=== PATIENT | female | born 1940 | race Caucasian/White ===

== ENCOUNTER → 2016-09-30 | Outpatient (CLI) | payer MEDICARE ==
[~2016-09-30] MED LIST: ASPIRIN81 M1 PO; BENADRYL25 MG PO; CALCIUM LACTAT100 MG PO; CALCIUM1 CAP PO; CENTRUM1 TAB PO; FISH OIL 10001000 MG PO; FISH OIL1 IU PO; INDERAL40 MG PO; LIPITOR40 MG PO; METFORMIN500 MG PO; MOTRIN600 MG PO; NITROSTAT0.4 MG SL; NORVASC10 MG PO; PLAVIX75 MG PO; PREDNICOT20 MG PO; TESSALON PERLE200 MG PO; VIBRAMYCIN100 MG PO; VITAMIN B COMPL1 T12 PO; VITAMIN D1000 IU PO; ZOCOR80 MG PO
== END | disposition home or self-care (01) ==
LOC: US 10:00
DX: M79.89 Other specified soft tissue disorders (principal)

== ENCOUNTER 2017-07-28 21:06 | Inpatient (IN) | payer MEDICARE ==
[~2017-07-28] VITALS: Ht 154.9 cm; Wt 82.8 kg
[2017-07-28 21:14] VITALS: BP 160/51
[2017-07-28 21:34] LABS: BASO % 0.5 % (0.0-1.0); EOS # 0.3 10*3/uL (0.0-0.4); EOS % 4.8 % (1.0-4.0); HEMATOCRIT 33.3 % (37.0-47.0); LYMPH # 1.3 10*3/uL (1.3-4.4); LYMPH % 22.4 % (27.0-41.0); MEAN CELL VOLUME 85.6 fl (81.0-99.0); MEAN CORPUSCULAR HGB 28.3 pg (27.0-31.0); MEAN PLATELET VOLUME 11.1 fl (9.6-12.3); MONO # 0.9 10*3/uL (0.1-1.0); MONO % 14.8 % (3.0-9.0); NEUT # 3.4 10*3/uL (2.3-7.9); NEUT % 57.3 % (47.0-73.0); PLATELET COUNT AUTOMATED 237 10*3/uL (130-400); RED BLOOD COUNT 3.89 10*6/uL (4.10-5.10); RED CELL DISTRI WIDTH 14.1 % (0-14.5); WHITE BLOOD COUNT 5.9 10*3/uL (4.8-10.8)
[2017-07-28 21:44] LABS: ACT PARTIAL THROMBO TIME 24.9 SECONDS (20.8-31.5); ALBUMIN 3.5 gm/dl (3.1-4.5); ALKALINE PHOSPHATASE 137 U/L (45-117); BUN 17 mg/dl (7-24); CHLORIDE 98 mmol/L (98-107); CREATININE 0.94 mg/dL (0.55-1.02); POTASSIUM 3.8 mmol/L (3.5-5.1); SGOT/AST 19 IU/L (3-35); SGPT/ALT 20 U/L (12-78); SODIUM 132 mmol/L (136-145); TOTAL PROTEIN 7.9 gm/dL (6.4-8.2)
[2017-07-28 21:45] LABS: TROPONIN I < 0.015 ng/ml (<0.045)
[2017-07-28 21:46] VITALS: BP 132/87
[2017-07-28 22:19] VITALS: BP 146/51
[2017-07-29 00:17] VITALS: BP 119/62
[2017-07-29 00:50] VITALS: BP 142/68
[2017-07-29 06:01] LABS: ALBUMIN 3.3 gm/dl (3.1-4.5); ALKALINE PHOSPHATASE 124 U/L (45-117); BUN 13 mg/dl (7-24); CHLORIDE 102 mmol/L (98-107); CHOLESTEROL 149 mg/dL (<200); CREATININE 0.74 mg/dL (0.55-1.02); FREE T4 1.23 ng/dl (0.76-1.46); HDL CHOLESTEROL 50 mg/dl (40-60); LDL CHOLESTEROL 80 mg/dL (9-159); PHOSPHOROUS 3.5 mg/dL (2.5-4.9); POTASSIUM 3.6 mmol/L (3.5-5.1); SGOT/AST 17 IU/L (3-35); SGPT/ALT 18 U/L (12-78); SODIUM 136 mmol/L (136-145); TOTAL PROTEIN 7.1 gm/dL (6.4-8.2); TRIGLYCERIDES 95 mg/dl (<150); VLDL CHOLESTEROL 19 mg/dL (6-40)
[2017-07-29 06:19] LABS: BASO % 0.6 % (0.0-1.0); EOS # 0.2 10*3/uL (0.0-0.4); EOS % 4.9 % (1.0-4.0); HEMATOCRIT 31.1 % (37.0-47.0); HEMOGLOBIN 10.4 g/dl (12.0-16.0); LYMPH # 0.9 10*3/uL (1.3-4.4); LYMPH % 19.2 % (27.0-41.0); MEAN CELL VOLUME 85.9 fl (81.0-99.0); MEAN CORPUSCULAR HGB 28.7 pg (27.0-31.0); MEAN CORPUSCULAR HGB CONC 33.4 g/dl (33.0-37.0); MEAN PLATELET VOLUME 11.4 fl (9.6-12.3); MONO # 0.6 10*3/uL (0.1-1.0); MONO % 13.5 % (3.0-9.0); NEUT # 2.9 10*3/uL (2.3-7.9); NEUT % 61.4 % (47.0-73.0); PLATELET COUNT AUTOMATED 209 10*3/uL (130-400); RED BLOOD COUNT 3.62 10*6/uL (4.10-5.10); RED CELL DISTRI WIDTH 14.1 % (0-14.5); WHITE BLOOD COUNT 4.7 10*3/uL (4.8-10.8)
[2017-07-29 07:59] LABS: VITAMIN D, 25-HYDROXY 18.4 ng/mL (30-100)
[2017-07-29 08:00] VITALS: BP 135/54
[2017-07-29] MEDS ORDERED: AMARYL2 MG PO (08:59)
[2017-07-29] MEDS ORDERED: VALSARTAN160 MG PO (09:00)
[2017-07-29] MEDS ORDERED: HYDR25T PO (09:01)
[2017-07-29 12:00] VITALS: BP 135/54
[2017-07-29 16:00] VITALS: BP 124/70
== END 2017-07-29 19:11 | disposition home or self-care (01) | DRG 552 ==
LOC: ED 21:06 → 5E 07-29 00:24 → EDHOLD 07-29 00:24 → 5E 07-29 00:30
PROVIDERS: Emergency Medicine Emergency Medical Services; Internal Medicine
DX: M50.922 Unspecified cervical disc disorder at C5-C6 level (principal); D72.1 Eosinophilia; E11.65 Type 2 diabetes mellitus with hyperglycemia; E87.1 Hypo-osmolality and hyponatremia; E44.1 Mild protein-calorie malnutrition; I50.32 Chronic diastolic (congestive) heart failure; K21.9 Gastro-esophageal reflux disease without esophagitis; F41.9 Anxiety disorder, unspecified; M94.0 Chondrocostal junction syndrome [Tietze]; I25.119 Atherosclerotic heart disease of native coronary artery with unspecified angina pectoris; D72.810 Lymphocytopenia; E55.9 Vitamin D deficiency, unspecified; D64.9 Anemia, unspecified; M99.81 Other biomechanical lesions of cervical region; M79.602 Pain in left arm; E78.5 Hyperlipidemia, unspecified; M54.12 Radiculopathy, cervical region; Z79.82 Long term (current) use of aspirin; I25.2 Old myocardial infarction; Z79.899 Other long term (current) drug therapy; Z85.3 Personal history of malignant neoplasm of breast; Z95.5 Presence of coronary angioplasty implant and graft; Z90.49 Acquired absence of other specified parts of digestive tract; Z90.13 Acquired absence of bilateral breasts and nipples; Z90.710 Acquired absence of both cervix and uterus; Z82.49 Family history of ischemic heart disease and other diseases of the circulatory system

== ENCOUNTER 2019-11-21 21:26 | Inpatient (IN) | payer MEDICARE ==
[~2019-11-21] VITALS: Ht 152.4 cm; Wt 71.2 kg
[~2019-11-21 21:26] MED LIST changes: +AMARYL2 MG PO; +HYDR25T PO; +VALSARTAN160 MG PO
[2019-11-21 21:27] VITALS: BP 128/102; BP 153/52
[2019-11-21 22:00] VITALS: BP 157/74
[2019-11-21 22:07] LABS: BASO % 0.7 % (0.0-1.0); EOS # 0.2 10*3/uL (0.0-0.4); EOS % 3.9 % (1.0-4.0); LYMPH # 1.2 10*3/uL (1.3-4.4); LYMPH % 20.4 % (27.0-41.0); MEAN CELL VOLUME 88.4 fl (81.0-99.0); MEAN CORPUSCULAR HGB 27.8 pg (27.0-31.0); MEAN CORPUSCULAR HGB CONC 31.4 g/dl (33.0-37.0); MEAN PLATELET VOLUME 11.1 fl (9.6-12.3); MONO # 0.7 10*3/uL (0.1-1.0); MONO % 11.5 % (3.0-9.0); NEUT # 3.8 10*3/uL (2.3-7.9); NEUT % 62.5 % (47.0-73.0); PLATELET COUNT AUTOMATED 237 10*3/uL (130-400); RED BLOOD COUNT 3.96 10*6/uL (4.10-5.10); RED CELL DISTRI WIDTH 13.6 % (0-14.5); WHITE BLOOD COUNT 6.1 10*3/uL (4.8-10.8)
[2019-11-21 22:15] LABS: ACT PARTIAL THROMBO TIME 25.9 SECONDS (20.0-32.1)
[2019-11-21 22:24] LABS: ALBUMIN 3.6 gm/dl (3.1-4.5); ALKALINE PHOSPHATASE 97 U/L (45-117); BUN 24 mg/dl (7-24); CHLORIDE 101 mmol/L (98-107); CREATININE 1.26 mg/dL (0.55-1.02); POTASSIUM 3.7 mmol/L (3.5-5.1); SGOT/AST 13 IU/L (3-35); SGPT/ALT 14 U/L (12-78); SODIUM 133 mmol/L (136-145); TOTAL PROTEIN 8.1 gm/dL (6.4-8.2)
[2019-11-21 22:26] LABS: TROPONIN I < 0.015 ng/ml (<0.045)
[2019-11-21 22:32] VITALS: BP 164/67
[2019-11-21] MEDS ORDERED: AVAPRO150 M1 PO (23:21)
[2019-11-21] MEDS ORDERED: FORTAMET500 MG PO (23:22)
[2019-11-21 23:35] VITALS: BP 152/63
[2019-11-22] VITALS: BP 105/72
[2019-11-22 07:03] LABS: BASO % 0.2 % (0.0-1.0); EOS % 0.3 % (1.0-4.0); HEMATOCRIT 39.5 % (37.0-47.0); LYMPH # 0.5 10*3/uL (1.3-4.4); LYMPH % 3.9 % (27.0-41.0); MEAN CELL VOLUME 89.6 fl (81.0-99.0); MEAN CORPUSCULAR HGB 27.9 pg (27.0-31.0); MEAN CORPUSCULAR HGB CONC 31.1 g/dl (33.0-37.0); MEAN PLATELET VOLUME 11.3 fl (9.6-12.3); MONO # 0.7 10*3/uL (0.1-1.0); MONO % 5.9 % (3.0-9.0); NEUT # 10.9 10*3/uL (2.3-7.9); NEUT % 89.5 % (47.0-73.0); PLATELET COUNT AUTOMATED 252 10*3/uL (130-400); RED BLOOD COUNT 4.41 10*6/uL (4.10-5.10); RED CELL DISTRI WIDTH 13.3 % (0-14.5); WHITE BLOOD COUNT 12.1 10*3/uL (4.8-10.8)
[2019-11-22 07:33] LABS: ALBUMIN 3.6 gm/dl (3.1-4.5); BUN 24 mg/dl (7-24); CHLORIDE 99 mmol/L (98-107); CHOLESTEROL 153 mg/dL (<200); CREATININE 0.86 mg/dL (0.55-1.02); POTASSIUM 4.3 mmol/L (3.5-5.1); SGOT/AST 23 IU/L (3-35); SGPT/ALT 15 U/L (12-78); SODIUM 129 mmol/L (136-145); TOTAL PROTEIN 8.2 gm/dL (6.4-8.2); TRIGLYCERIDES 82 mg/dl (<150); VLDL CHOLESTEROL 16 mg/dL (6-40)
[2019-11-22 07:40] LABS: ALKALINE PHOSPHATASE 96 U/L (45-117); FREE T4 1.33 ng/dl (0.76-1.46); HDL CHOLESTEROL 54 mg/dl (40-60); LDL CHOLESTEROL 83 mg/dL (9-159)
[2019-11-22 08:37] LABS: VITAMIN D, 25-HYDROXY 24.2 ng/mL (30-100)
== END 2019-11-22 10:49 | disposition left against medical advice (07) | DRG 311 ==
LOC: ED 21:26 → 4E 23:38 → EDHOLD 23:38 → 4E 23:41
PROVIDERS: Emergency Medicine; Internal Medicine; ADMIT Internal Medicine
DX: I24.8 Other forms of acute ischemic heart disease (principal); N17.0 Acute kidney failure with tubular necrosis; E87.1 Hypo-osmolality and hyponatremia; I50.32 Chronic diastolic (congestive) heart failure; I25.10 Atherosclerotic heart disease of native coronary artery without angina pectoris; E11.65 Type 2 diabetes mellitus with hyperglycemia; E66.9 Obesity, unspecified; I11.0 Hypertensive heart disease with heart failure; E78.5 Hyperlipidemia, unspecified; D64.9 Anemia, unspecified; E55.9 Vitamin D deficiency, unspecified; Z53.29 Procedure and treatment not carried out because of patient's decision for other reasons; I34.0 Nonrheumatic mitral (valve) insufficiency; I25.2 Old myocardial infarction; Z90.13 Acquired absence of bilateral breasts and nipples; Z90.49 Acquired absence of other specified parts of digestive tract; Z90.710 Acquired absence of both cervix and uterus; Z95.5 Presence of coronary angioplasty implant and graft; Z82.49 Family history of ischemic heart disease and other diseases of the circulatory system; Z79.899 Other long term (current) drug therapy; Z79.84 Long term (current) use of oral hypoglycemic drugs; Z85.3 Personal history of malignant neoplasm of breast; Z79.82 Long term (current) use of aspirin

== ENCOUNTER 2019-11-23 14:00 | Observation (INO) | payer MEDICARE ==
[~2019-11-23] VITALS: Ht 152.4 cm; Wt 70.8 kg
[~2019-11-23 14:00] MED LIST changes: +AVAPRO150 M1 PO; +FORTAMET500 MG PO
[2019-11-23 14:15] VITALS: BP 136/60
[2019-11-23 14:19] LABS: BASO % 0.1 % (0.0-1.0); MEAN CORPUSCULAR HGB 27.8 pg (27.0-31.0)
[2019-11-23 14:22] LABS: HEMATOCRIT 39.3 % (37.0-47.0); LYMPH % 11.1 % (27.0-41.0); MEAN CORPUSCULAR HGB CONC 33.1 g/dl (33.0-37.0); MEAN PLATELET VOLUME 11.2 fl (9.6-12.3); MONO # 0.8 10*3/uL (0.1-1.0); MONO % 9.1 % (3.0-9.0); NEUT # 6.9 10*3/uL (2.3-7.9); NEUT % 79.6 % (47.0-73.0); RED BLOOD COUNT 4.68 10*6/uL (4.10-5.10); RED CELL DISTRI WIDTH 13.7 % (0-14.5); WHITE BLOOD COUNT 8.6 10*3/uL (4.8-10.8)
[2019-11-23 14:25] LABS: PLATELET COUNT AUTOMATED 334 10*3/uL (130-400)
[2019-11-23 14:30] LABS: ACT PARTIAL THROMBO TIME 26.5 SECONDS (20.0-32.1)
[2019-11-23 14:34] LABS: ALBUMIN 3.6 gm/dl (3.1-4.5); CREATININE 1.9 mg/dL (0.55-1.02); POTASSIUM 3.9 mmol/L (3.5-5.1); TOTAL PROTEIN 8.7 gm/dL (6.4-8.2)
[2019-11-23 14:45] LABS: TROPONIN I 0.103 ng/ml (<0.045)
[2019-11-23 15:36] VITALS: BP 130/57
[2019-11-23 16:42] VITALS: BP 148/63
[2019-11-23 17:10] VITALS: BP 154/63
--- NOTE | 2019-11-23 17:10 | NUR ---
A 78, admitted to , under the services of JAQUELINE King DO with a diagnosis of BLAKE, ELEVATED TROPONIN, CHEST PAIN. Chief complaint is CHEST PAIN. Patient arrived via ambulatory from ER. Monitor applied. Initial assessment completed. Vital signs taken and recorded. JAQUELINE KING DO notified of admission to the unit. Orders received. See assessment for past medical history, medications and allergies. Patient and/or family oriented to unit. [facility] visitation policy reviewed. Clothing/patient valuable form completed. AP MCGEE
--- NOTE | 2019-11-23 17:58 | NUR ---
DR. ANTONY NOTIFIED OF NEW CONSULT. NEW ORDERS RCVD.
--- NOTE | 2019-11-23 18:15 | NUR ---
PT HAD SMALL EMESIS OF BROWN LIQUID AND C/O MIDSTERNAL CHEST PRESSURE 6/10. MEDICATED W/MORPHINE AND ZOFRAN IVP. WILL MONITOR.
--- NOTE | 2019-11-23 19:00 | NUR ---
PT STATES CHEST DISCOMFORT HAS SUBSIDED WELL NAUSEA. PT ATTEMPTING TO EAT CRACKERS AND APPLESAUCE.
--- NOTE | 2019-11-23 20:27 | NUR ---
DR. CERRATO NOTIFIED OF PT'S CRITICAL TROPONIN AND MED REC UTD.
--- NOTE | 2019-11-23 23:25 | NUR ---
DR. CERRATO NOTIFIED OF PT'S ELEVATED TROPONIN.
[2019-11-24] VITALS: BP 148/66
--- NOTE | 2019-11-24 00:51 | NUR ---
PT RESTING QUIETLY IN BED. NO S/S OF DISTRESS NOTED.
--- NOTE | 2019-11-24 06:14 | NUR ---
SPOKE W/CARDIAC REHAB. PT HAD REFUSED STRESS TEST LAST WK. PT AND ARE AGREEABLE TO STRESS TEST AT THIS TIME.
[2019-11-24 07:17] LABS: BASO % 0.2 % (0.0-1.0); EOS % 0.3 % (1.0-4.0); HEMATOCRIT 33.9 % (37.0-47.0); LYMPH # 0.9 10*3/uL (1.3-4.4); LYMPH % 14.7 % (27.0-41.0); MEAN CELL VOLUME 86.5 fl (81.0-99.0); MEAN CORPUSCULAR HGB 28.1 pg (27.0-31.0); MEAN CORPUSCULAR HGB CONC 32.4 g/dl (33.0-37.0); MEAN PLATELET VOLUME 11.4 fl (9.6-12.3); MONO % 15.9 % (3.0-9.0); NEUT # 4.3 10*3/uL (2.3-7.9); NEUT % 68.7 % (47.0-73.0); PLATELET COUNT AUTOMATED 257 10*3/uL (130-400); RED BLOOD COUNT 3.92 10*6/uL (4.10-5.10); WHITE BLOOD COUNT 6.2 10*3/uL (4.8-10.8)
[2019-11-24 07:44] LABS: ALBUMIN 3.1 gm/dl (3.1-4.5); ALKALINE PHOSPHATASE 69 U/L (45-117); BUN 52 mg/dl (7-24); CHLORIDE 104 mmol/L (98-107); CREATININE 1.07 mg/dL (0.55-1.02); POTASSIUM 3.5 mmol/L (3.5-5.1); SGOT/AST 9 IU/L (3-35); SGPT/ALT 10 U/L (12-78); SODIUM 134 mmol/L (136-145)
[2019-11-24 08:00] VITALS: BP 122/50; BP 126/54
--- NOTE | 2019-11-24 09:00 | NUR ---
Stogy Maker in to talk to patient. Patient states lives at home with . There are no steps in the home. Physician: out of town Pharmacy: mail Home health services: none Patient's level of ADLs: INDEPENDENT Patient has working utilities: all working DME: none Follow-up physician's appointment after d/c: will be made by hospitalist nurse director upon discahrge Does patient want to access PORTAL?: no Discharge plan discussed with patient, she states she lives at home with , she is independent in adls and ambulation, drives, she states she will return home when discharged and denies any home needs. MARIA ELENA FERNANDES
[2019-11-24] MEDS ORDERED: METOPROLOL SUCC50 M1 PO (10:13)
--- NOTE | 2019-11-24 10:35 | NUR ---
CALLED AND NOTIFIED PT'S ABOUT TRANSFERRING TO [facility] CATH PROCEDURE.
--- NOTE | 2019-11-24 11:19 | NUR ---
CALLED AND NOTIFIED AND [facility] TRANSFER MICE RAISER.
--- NOTE | 2019-11-24 11:24 | NUR ---
CALLED AND SPOKE TO BOOM AT [facility]. GAVE HIM NURSE TO NURSE. HE ASKED FOR US TO FAX HIM A DEMOGRAPHIC PAPER ON PT.
--- NOTE | 2019-11-24 11:26 | NUR ---
Discharge instructions PLACED IN PACKET FOR TRANSFERRED [facility] CATH PROCEDURE. . Patient receptive and verbalizes understanding. Follow-up care arranged. Written instructions PLACED IN PAPERWORK FOR TRANSFER. PT HAD NO OTHER QUESTIONS AND PT'S WAS NOTIFIED OF TRANSFER AND GIVEN INSTRUCTIONS. IV REMAINED IN LEFT HAND AND PT WAS TAKEN OFF ELCH MONITOR AND PLACED ON LIFE TEAMS MONITOR. . HARI PURI
== END 2019-11-24 11:26 | disposition short-term general hospital (02) ==
LOC: ED 14:00 → EDHOLD 15:42 → 5E 16:41
PROVIDERS: Emergency Medicine; Registered Nurse; ADMIT Internal Medicine
DX: I21.4 Non-ST elevation (NSTEMI) myocardial infarction (principal); N17.0 Acute kidney failure with tubular necrosis; E86.0 Dehydration; E87.8 Other disorders of electrolyte and fluid balance, not elsewhere classified; R79.89 Other specified abnormal findings of blood chemistry; E87.1 Hypo-osmolality and hyponatremia; I25.10 Atherosclerotic heart disease of native coronary artery without angina pectoris; I11.0 Hypertensive heart disease with heart failure; I50.32 Chronic diastolic (congestive) heart failure; E44.1 Mild protein-calorie malnutrition; E11.65 Type 2 diabetes mellitus with hyperglycemia; E78.5 Hyperlipidemia, unspecified; E55.9 Vitamin D deficiency, unspecified

== ENCOUNTER 2019-11-30 10:11 | Inpatient (IN) | payer MEDICARE ==
[~2019-11-30] VITALS: Ht 152.4 cm; Wt 71.2 kg
[~2019-11-30 10:11] MED LIST changes: +METOPROLOL SUCC50 M1 PO
[2019-11-30 10:20] VITALS: BP 137/55
[2019-11-30 10:56] LABS: HEMATOCRIT 35.3 % (37.0-47.0); MEAN CELL VOLUME 84.4 fl (81.0-99.0); MEAN CORPUSCULAR HGB 27.8 pg (27.0-31.0); MEAN CORPUSCULAR HGB CONC 32.9 g/dl (33.0-37.0); MEAN PLATELET VOLUME 11.2 fl (9.6-12.3); PLATELET COUNT AUTOMATED 335 10*3/uL (130-400); RED BLOOD COUNT 4.18 10*6/uL (4.10-5.10); RED CELL DISTRI WIDTH 13.6 % (0-14.5); WHITE BLOOD COUNT 10.2 10*3/uL (4.8-10.8)
[2019-11-30 11:07] LABS: ACT PARTIAL THROMBO TIME 25.7 SECONDS (20.0-32.1)
[2019-11-30 11:13] LABS: ALBUMIN 3.3 gm/dl (3.1-4.5); ALKALINE PHOSPHATASE 76 U/L (45-117); BUN 13 mg/dl (7-24); CHLORIDE 98 mmol/L (98-107); CREATININE 0.84 mg/dL (0.55-1.02); POTASSIUM 2.6 mmol/L (3.5-5.1); SGOT/AST 19 IU/L (3-35); SGPT/ALT 15 U/L (12-78); SODIUM 130 mmol/L (136-145); TOTAL PROTEIN 7.5 gm/dL (6.4-8.2)
[2019-11-30 11:14] LABS: TROPONIN I 0.025 ng/ml (<0.045)
--- NOTE | 2019-11-30 11:31 | NUR ---
SPOKE WITH A DUAGHTER OF THE PT INI THE ER LOBBY. THEY REPORTS PT WASD TRANSFERED TO [facility] LAST WEEK AND HAD A CATH WITH 1 STENT PLACED. YESTERDAY PT HAD N/V/D. SHE TOOK IMMODIUM AND BRAT DIET AND IT RESOLVED. PT'S REPORTS SHE WAS BETTER THIS AM BUT C/O ABD/CHEST/BACK PAIN. PT IS RESTING IN ROOM, NO ACUTE DISTRESS NOTED AT THIS TIME. DR BENSON INFORMED.
[2019-11-30 11:35] LABS: BASOPHILS 1 % (0-1); TOTAL CELLS COUNTED 100 #CELLS
[2019-11-30 11:36] LABS: BURR CELLS FEW; PLATELET SUFFICIENCY NORMAL (NORMAL)
--- NOTE | 2019-11-30 11:59 | NUR ---
PT C/O PAIN TO EPIGASTRIC AREA, NOTIFIED DR BENSON , MEDS TO BE ORDERED.
[2019-11-30 12:00] VITALS: BP 118/88
--- NOTE | 2019-11-30 12:51 | NUR ---
PT TO BE ADMITTED, PT'S AND DAUGHTER UPDATED WITH THE PROCESS. FAMILY WAS UPSET THEY COULD NOT GO TO THE BACK AND SEE PT. DUE TO COVID NO VISITERS AT THIS TIME. PT IS ASTABLE AND AOX3 AT THIS TIME. PT IS AWARE SHE IS BEING ADMITTED AND IS AGREEABLE. NO ACUTE DISTRESS NOTED, DEMEROL WAS EFFECTIVE FOR HER PAIN. RESTNG QUIETLY AT THIS TIME. HE 84 BP STABLE, POX 99% RA.
[2019-11-30 12:54] VITALS: BP 115/78
--- NOTE | 2019-11-30 14:05 | NUR ---
A 78, admitted to , under the services of FILIPE West DO with a diagnosis of CHEST PAIN. Chief complaint is EPIGASTRIC AREA PAIN. Patient arrived via bed from ER. Monitor applied. Initial assessment completed. Vital signs taken and recorded. FILIPE WEST DO notified of admission to the unit. Orders received. See assessment for past medical history, medications and allergies. Patient and/or family oriented to unit. [facility]. Clothing/patient valuable form completed. REJI AGUILLON
[2019-11-30] MEDS ORDERED: CLONAZEPAM0.5 M1 PO (14:16)
[2019-11-30] MEDS ORDERED: QUETIAPINE FUM100 M2 PO (14:17)
[2019-11-30] MEDS ORDERED: GABAPENTIN400 MG PO ×2 (14:17→14:18)
[2019-11-30] MEDS ORDERED: DOXEPIN HCL150 MG PO (14:17)
[2019-11-30] MEDS ORDERED: BRILINTA90 M1 PO (14:50)
[2019-11-30] MEDS ORDERED: TOPROL XL25 MG PO (14:51)
[2019-11-30] MEDS ORDERED: METFORMIN HCL500 M2 PO (14:51)
[2019-11-30 16:00] VITALS: BP 132/60
--- NOTE | 2019-11-30 17:32 | NUR ---
PATIENT C/O NAUSEA AND UPSET STOMACH. MEDICATD WITH IV ZOFRAN AT THIS TIME PER ORDER. WILL MONITOR FOR EFFECTIVENESS.
[2019-11-30 20:00] VITALS: BP 105/74
--- NOTE | 2019-11-30 20:01 | NUR ---
24 HR chart check completed.
--- NOTE | 2019-11-30 20:37 | NUR ---
RESTING IN BED. RESPIRATIONS EASY. LUNGS DIMINISHED, CLEAR. PULSE OX 96% RA. ABD SOFT WITH NORMO BOWEL SOUNDS. MEDCIATED WITH MORPHINE IV PER PRN ORDER FOR C/O EPIGASTRIC PAIN RATING A 10. CALL LIGHT WITHIN REACH. WILL MONITOR FOR EFFECTIVENESS
--- NOTE | 2019-11-30 21:14 | NUR ---
MEDICATED WITH RESTORIL PER PRN ORDER TO ASSIST WITH SLEEP. WILL MONITOR FOR EFFECTIVENESS
--- NOTE | 2019-11-30 21:30 | NUR ---
EARLIER MEDS APPEARR EFFECTIVE. RESTING IN BED WITH EYES CLOSED AND NO DISTRESS NOTED. CALL LIGHT WITHIN REACH.
--- NOTE | 2019-11-30 22:00 | NUR ---
MEDS EFFECTIVE. SLEEPING. CALL LIGHT WITHIN REACH.
[2019-12-01] VITALS: BP 110/51
--- NOTE | 2019-12-01 | NUR ---
SLEEPING. NO DISTRESS NOTED. RESPIRATIONS EASY. VSS. CALL LIGHT WITHIN REACH.
--- NOTE | 2019-12-01 05:45 | NUR ---
UPON AWAKENING FOR AM MEDS, C/O EPIGASTRIC PAIN RATING A 5 - MEDICATED WITH MORPHINE IV PER PRN ORDER. CALL LIGHT WITHIN REACH. WILL MONITOR
--- NOTE | 2019-12-01 06:30 | NUR ---
MEDS APPEAR EFFECTIVE. RESTING WITH EYES CLOSED. RESPIRATIONS EASY. CALL LIGHT WITHIN REACH.
[2019-12-01 06:46] LABS: HEMATOCRIT 36.5 % (37.0-47.0); MEAN CELL VOLUME 84.1 fl (81.0-99.0); MEAN CORPUSCULAR HGB 27.9 pg (27.0-31.0); MEAN CORPUSCULAR HGB CONC 33.2 g/dl (33.0-37.0); MEAN PLATELET VOLUME 11.5 fl (9.6-12.3); PLATELET COUNT AUTOMATED 379 10*3/uL (130-400); RED BLOOD COUNT 4.34 10*6/uL (4.10-5.10); RED CELL DISTRI WIDTH 13.5 % (0-14.5); WHITE BLOOD COUNT 16.3 10*3/uL (4.8-10.8)
[2019-12-01 07:14] LABS: CREATININE 1.91 mg/dL (0.55-1.02)
[2019-12-01 07:21] LABS: POTASSIUM 4.1 mmol/L (3.5-5.1)
[2019-12-01 07:46] LABS: BURR CELLS FEW; TOTAL CELLS COUNTED 100 #CELLS
[2019-12-01 07:47] LABS: PLATELET SUFFICIENCY NORMAL (NORMAL)
[2019-12-01 08:00] VITALS: BP 96/50
[2019-12-01 10:38] LABS: BILIRUBIN NEGATIVE (NEGATIVE); BLOOD NEGATIVE (NEGATIVE); CLARITY CLOUDY (CLEAR); COLOR YELLOW (YELLOW); GLUCOSE NEGATIVE (NEGATIVE); KETONE NEGATIVE (NEGATIVE); LEUKO ESTERASE NEGATIVE (NEGATIVE); NITRITE NEGATIVE (NEGATIVE); UROBILINOGEN 0.2 E.U./dl (0.2-1.0)
[2019-12-01 10:55] LABS: BACTERIA 3+; EPITHELIAL CELLS TNTC
[2019-12-01 12:00] VITALS: BP 111/58
--- NOTE | 2019-12-01 12:23 | NUR ---
Visual Developer in to talk to patient. Patient states lives at HOME with . There are NO steps in the home. Physician: KARIME ZAMUDIO IN [place] Pharmacy: [facility] Home health services: NONE Patient's level of ADLs: INDEPENDENT Patient has working utilities: YES DME: NONE Follow-up physician's appointment after d/c: WILL BE MADE BY HOSPITALIST NURSE DIRECTOR ON DISCHARGE Does patient want to access PORTAL?: NO Discharge plan PT LIVES AT HOME WITH FAMILY AND IS INDEPENDENT IN HER CARE. DENIES SHE WILL HAVE ANY NEEDS ON DISCHARGE. PLANS TO RETURN HOME WHEN MEDICALLY STABLE. WILL CONTINUE TO FOLLOW. STATES HER WILL TAKE HER HOME. . CANDI CATHERINE
[2019-12-01 13:06] LABS: HEMATOCRIT 33.7 % (37.0-47.0); MEAN CELL VOLUME 83.4 fl (81.0-99.0); MEAN CORPUSCULAR HGB CONC 33.5 g/dl (33.0-37.0); MEAN PLATELET VOLUME 11.1 fl (9.6-12.3); PLATELET COUNT AUTOMATED 370 10*3/uL (130-400); RED BLOOD COUNT 4.04 10*6/uL (4.10-5.10); RED CELL DISTRI WIDTH 13.8 % (0-14.5)
[2019-12-01 13:20] LABS: CREATININE 2.33 mg/dL (0.55-1.02); POTASSIUM 4.3 mmol/L (3.5-5.1)
[2019-12-01 13:22] LABS: BURR CELLS FEW; PLATELET SUFFICIENCY NORMAL (NORMAL); TOTAL CELLS COUNTED 100 #CELLS; TOXIC GRANULATION SLIGHT
--- NOTE | 2019-12-01 14:30 | NUR ---
PAGED 'S ANSWERING SERVICE REGARDING CONSULT.
[2019-12-01 16:00] VITALS: BP 148/62
[2019-12-01 20:00] VITALS: BP 128/61
--- NOTE | 2019-12-01 20:00 | NUR ---
FORGETFUL, RESTING IN BED. RESPIRATIONS EASY. LUNGS DIMINISHED. PULSE OX 100% RA. +2 NON-PITTING BLE EDEMA. ALBUMIN INFUSING PER ORDER. CALL LIGHT WITHIN REACH.
--- NOTE | 2019-12-01 20:16 | NUR ---
24 HR chart check completed.
--- NOTE | 2019-12-01 20:30 | NUR ---
PATIENT ON PHONE TALKING WITH FAMILY, TEARFUL. PATIENT REPEATEDLY STATING "I WANT TO GO HOME. I HAVE A ." ATTEMPTED TO EXPLAIN TO PATIENT THAT SHE NEEDED TO RECEIVE TREATMENT. PATIENT REMAINS UPSET.
--- NOTE | 2019-12-01 21:03 | NUR ---
MEDICATED WITH RESTORIL PER PRN ORDER TO ASSIST WITH SLEEP. WILL MONITOR.
--- NOTE | 2019-12-01 22:00 | NUR ---
REMAINS AWAKE BUT DROWSY. RESPIRATIONS EASY. CALL LIGHT WITHIN REACH
--- NOTE | 2019-12-01 23:17 | NUR ---
MEDICATED WITH ZOFRAN IV PER PRN ORDER FOR VOMITING BILE LIKE EMESIS. WILL MONITOR
[2019-12-01 23:45] LABS: CLARITY CLOUDY (CLEAR); COLOR YELLOW (YELLOW); GLUCOSE NEGATIVE (NEGATIVE)
[2019-12-01 23:48] LABS: BILIRUBIN 2+ (NEGATIVE); BLOOD NEGATIVE (NEGATIVE); KETONE 1+ (NEGATIVE); LEUKO ESTERASE 1+ (NEGATIVE); NITRITE NEGATIVE (NEGATIVE); UROBILINOGEN 0.2 E.U./dl (0.2-1.0)
[2019-12-01 23:56] LABS: BACTERIA 3+; EPITHELIAL CELLS TNTC; WBC 51-100 wbc/hpf (0-5)
[2019-12-02] VITALS: BP 138/66
--- NOTE | 2019-12-02 | NUR ---
MEDS APPEAR EFFECTIVE. SLEEPING. RESPIRATIONS EASY. VSS. CALL LIGHT WITHIN REACH
--- NOTE | 2019-12-02 06:00 | NUR ---
SLEPT THROUGHOUT NIGHT WITH NO DISTRESS NOTED. RESPIRATIONS EASY. CALL LIGHT WITHIN REACH. NO VOICED COMPLAINTS THIS SHIFT
[2019-12-02 07:51] LABS: ALBUMIN 3.8 gm/dl (3.1-4.5); CREATININE 1.83 mg/dL (0.55-1.02); POTASSIUM 3.8 mmol/L (3.5-5.1); TOTAL PROTEIN 7.7 gm/dL (6.4-8.2)
[2019-12-02 08:00] VITALS: BP 137/64
--- NOTE | 2019-12-02 09:49 | NUR ---
Patient signed out AMA. Patient encouraged to stay and advised of possible consequences of premature discharge. Physician and turn supervisor NORIS notified. Patient instructed what to do regarding care post-departure from the hospital; emergency phone numbers provided. Patent was accompanied by SELF. DARYL HERNANDEZ
--- NOTE | 2019-12-02 09:55 | NUR ---
IN TO SEE PATIENT REGARDING CONSULT.
--- NOTE | 2019-12-02 10:44 | NUR ---
PT MEDICATED WITH IV ZOFRAN PER PRN ORDER FOR C/O NAUSEA. WILL MONITOR EFFECTIVENESS. CALL LIGHT WITHIN REACH.
--- NOTE | 2019-12-02 11:44 | NUR ---
ZOFRAN RELIEVING NAUSEA PER PT. WILL CONTINUE TO MONITOR.
[2019-12-02 12:00] VITALS: BP 141/69
--- NOTE | 2019-12-02 12:07 | NUR ---
TECH BRAZER TESTER IN TO SPEAK WITH PT. DISCUSSED HH WITH PT AGAIN BUT SHE REFUSES. PLANS TO RETURN HOME WITH AND NO NEW NEEDS. WILL CONTINUE TO FOLLOW.
--- NOTE | 2019-12-02 12:19 | NUR ---
CALLED IN AND REQUESTED TO SPEAK WITH PHYSICIAN REGARDING HIS WIFES PLAN OF CARE. NOTIFIED AT THIS TIME.
--- NOTE | 2019-12-02 15:35 | NUR ---
IN TO SEE PATIENT.
[2019-12-02 16:00] VITALS: BP 116/64
[2019-12-02 20:00] VITALS: BP 133/63
--- NOTE | 2019-12-02 21:01 | NUR ---
PT SITTING UP IN RECLINER CHAIR. C/O NAUSEA, ABDOMINAL PAIN, TENDER TO TOUCH. MEDICATED WITH ZOFRAN, AND TYLENOL, SEE EMAR. RATES PAIN 8 ON PAIN SCALE 0-10. CALL LIGHT IN REACH. IVF INFUSING WITH NO PROBLEM.
--- NOTE | 2019-12-02 21:50 | NUR ---
PT RESTING IN BED. RESP-EASY AND REGULAR. STATES MEDICATION WAS EFFECTIVE. CALL LIGHT IN REACH. WILL CON'T TO MONITOR.
[2019-12-03] VITALS: BP 128/57
--- NOTE | 2019-12-03 | NUR ---
PT ASSISTED UP TO BSC AND BACK TO BED. IVF INFUSING WITH NO PROBLEM. NO C/O AT THIS TIME. CALL LIGHT IN REACH. SEE SHIFT ASSESSMENT. BED ALARM ON.
--- NOTE | 2019-12-03 06:00 | NUR ---
TOLERATED ROUTINE MED WITH NO PROBLEM. CALL LIGHT IN REACH.
[2019-12-03 07:20] LABS: HEMATOCRIT 30.4 % (37.0-47.0); MEAN CELL VOLUME 84.7 fl (81.0-99.0); MEAN CORPUSCULAR HGB 27.6 pg (27.0-31.0); MEAN CORPUSCULAR HGB CONC 32.6 g/dl (33.0-37.0); MEAN PLATELET VOLUME 11.1 fl (9.6-12.3); PLATELET COUNT AUTOMATED 303 10*3/uL (130-400); RED BLOOD COUNT 3.59 10*6/uL (4.10-5.10); RED CELL DISTRI WIDTH 13.4 % (0-14.5); WHITE BLOOD COUNT 15.8 10*3/uL (4.8-10.8)
[2019-12-03 07:32] LABS: CREATININE 1.6 mg/dL (0.55-1.02); POTASSIUM 3.7 mmol/L (3.5-5.1)
[2019-12-03 07:47] LABS: ACANTHOCYTES FEW; BURR CELLS FEW; PLATELET SUFFICIENCY NORMAL (NORMAL); POLYCHROMASIA SLIGHT; TOTAL CELLS COUNTED 100 #CELLS
[2019-12-03 08:00] VITALS: BP 129/47
--- NOTE | 2019-12-03 11:36 | NUR ---
IN TO SEE PATIENT.
[2019-12-03 12:00] VITALS: BP 132/40
--- NOTE | 2019-12-03 15:06 | NUR ---
PATIENT REPOSITIONED IN BED FOR LUNCH TRAY. WILL SEE HOW PATIENT TOLERATES FULL LIQUID.
--- NOTE | 2019-12-03 15:45 | NUR ---
PT TOLERATED FULL LIQUID DIET WITHOUT ANY ISSUE. MADE AWARE. DIET TO BE ADVANCED TO SOFT FOR DINNER AND WILL SEE HOW PATIENT TOLERATES IT.
[2019-12-03 16:00] VITALS: BP 118/87
[2019-12-03] MEDS ORDERED: Carafate1 GM PO (16:17)
[2019-12-03] MEDS ORDERED: PROTONIX40 MG PO (16:17)
[2019-12-03] MEDS ORDERED: IMDUR SA30 MG PO (16:17)
--- NOTE | 2019-12-03 16:52 | NUR ---
PATIENT MUCH MORE ALERT THIS AFTERNOON. PT DENIES ANY EPIGASTRIC PAIN AT THIS TIME. DENIES ANY NAUSEA/VOMITING. IVF MAINTAINED PER ORDER. WILL MONITOR HOW PATIENT TOLERATES SOFT DIET THIS EVENING. CALL LIGHT WITHIN REACH.
--- NOTE | 2019-12-03 17:45 | NUR ---
PT TOLERATED SOFT DIET WITHOUT ANY DIFFICULTY.
--- NOTE | 2019-12-03 18:38 | NUR ---
Discharge instructions reviewed with patient. Patient receptive and verbalizes understanding. Follow-up care arranged. Written instructions given to patient. DARYL HERNANDEZ
--- NOTE | 2019-12-03 20:00 | NUR ---
PATIENTS FAMILY CALLED IN AND SAID THAT HER MEDICATIONS WERE SENT TO [facility] AND THEY WILL NOT BE ABLE TO GET ANY OF THESE MEDICATIONS FOR ABOUT A WEEK IT IS HOME DELIVERY. NOTIFIED DR. BELLA AT THIS TIME OF SITUATION AND THAT PATIENTS FAMILY REQUESTED TO HAVE THEM SENT TO [facility]. THE MEDICATIONS IN QUESTION ARE IMDUR, PROTONIX AND CARAFATE. DR. BELLA STATED HE WILL SEE WHAT HE CAN GET FIXED AROUND AND CALL ME BACK
--- NOTE | 2019-12-03 20:25 | NUR ---
SPOKE WITH DR. BELLA AT THIS TIME, DR. BELLA ATTEMPTED TO SENT NEW PRESCRIPTIONS TO [facility], BUT THE PHARMACY WAS CLOSED, HE STATED HE SPOKE WITH [facility] WHO DISCHARGED THE PATIENT AND THAT FIRST THING IN THE MORNING THEY WILL SENT A SHORT SCRIPT IN TO THE PHARMACY TO ALLOW THE PATIENT TO HAVE ENOUGH TO MAKE IT UNTIL HER PRESCRIPTIONS ARE MAILED IN FROM [facility]. NOTIFIED PATIENTS HALEY AND HE STATED THAT IS FINE AND HE WILL CHECK IN WITH THE PHARMACY IN THE MORNING
== END 2019-12-03 18:38 | disposition home or self-care (01) | DRG 205 ==
LOC: ED 10:11 → EDHOLD 12:01 → 5E 12:01 → EDHOLD 12:13 → 5E 13:31
PROVIDERS: Emergency Medicine; Internal Medicine; Student in an Organized Health Care Education/Training Program; ADMIT Student in an Organized Health Care Education/Training Program
DX: M94.0 Chondrocostal junction syndrome [Tietze] (principal); N17.0 Acute kidney failure with tubular necrosis; E87.1 Hypo-osmolality and hyponatremia; I50.32 Chronic diastolic (congestive) heart failure; I13.0 Hypertensive heart and chronic kidney disease with heart failure and stage 1 through stage 4 chronic kidney disease, or unspecified chronic kidney disease; K21.9 Gastro-esophageal reflux disease without esophagitis; F41.9 Anxiety disorder, unspecified; E11.69 Type 2 diabetes mellitus with other specified complication; E87.6 Hypokalemia; I25.10 Atherosclerotic heart disease of native coronary artery without angina pectoris; E66.3 Overweight; E78.5 Hyperlipidemia, unspecified; E11.22 Type 2 diabetes mellitus with diabetic chronic kidney disease; D64.9 Anemia, unspecified; E55.9 Vitamin D deficiency, unspecified; N18.9 Chronic kidney disease, unspecified; R63.0 Anorexia; I08.1 Rheumatic disorders of both mitral and tricuspid valves; I25.2 Old myocardial infarction; Z85.3 Personal history of malignant neoplasm of breast; Z90.710 Acquired absence of both cervix and uterus; Z90.49 Acquired absence of other specified parts of digestive tract; Z95.5 Presence of coronary angioplasty implant and graft; Z90.13 Acquired absence of bilateral breasts and nipples; Z82.49 Family history of ischemic heart disease and other diseases of the circulatory system; Z79.899 Other long term (current) drug therapy; Z79.82 Long term (current) use of aspirin; Z79.84 Long term (current) use of oral hypoglycemic drugs; Z68.29 Body mass index [BMI] 29.0-29.9, adult

== ENCOUNTER 2022-03-30 18:36 | Emergency (ER) | payer SELFPAY ==
[~2022-03-30] VITALS: Wt 65.8 kg
[~2022-03-30 18:36] MED LIST changes: +BRILINTA90 M1 PO; +CLONAZEPAM0.5 M1 PO; +Carafate1 GM PO; +DOXEPIN HCL150 MG PO; +GABAPENTIN400 MG PO; +IMDUR SA30 MG PO; +METFORMIN HCL500 M2 PO; +PROTONIX40 MG PO; +QUETIAPINE FUM100 M2 PO; +TOPROL XL25 MG PO
[2022-03-30 19:01] LABS: BASO % 0.7 % (0.0-1.0); EOS # 0.1 10*3/uL (0.0-0.4); HEMATOCRIT 40.5 % (37.0-47.0); LYMPH # 0.6 10*3/uL (1.3-4.4); LYMPH % 10.5 % (27.0-41.0); MEAN CELL VOLUME 87.7 fl (81.0-99.0); MEAN CORPUSCULAR HGB 28.6 pg (27.0-31.0); MEAN CORPUSCULAR HGB CONC 32.6 g/dl (33.0-37.0); MEAN PLATELET VOLUME 11.5 fl (9.6-12.3); MONO # 0.7 10*3/uL (0.1-1.0); MONO % 10.7 % (3.0-9.0); NEUT # 4.6 10*3/uL (2.3-7.9); NEUT % 75.9 % (47.0-73.0); PLATELET COUNT AUTOMATED 206 10*3/uL (130-400); RED BLOOD COUNT 4.62 10*6/uL (4.10-5.10); RED CELL DISTRI WIDTH 15.4 % (0-14.5); WHITE BLOOD COUNT 6.1 10*3/uL (4.8-10.8)
[2022-03-30 19:21] LABS: CREATININE 1.12 mg/dL (0.55-1.02); POTASSIUM 3.1 mmol/L (3.5-5.1); TOTAL PROTEIN 6.8 gm/dL (6.4-8.2)
[2022-03-30 19:51] LABS: ACT PARTIAL THROMBO TIME 26.7 SECONDS (20.0-32.1); INTERNATIONAL NORM RATIO 1.2 (2.0-3.5)
[2022-03-30 22:08] VITALS: BP 130/72
== END 2022-03-30 22:53 | disposition home or self-care (01) ==
LOC: ED 18:36
PROVIDERS: Family Medicine
DX: R07.89 Other chest pain (principal); R06.02 Shortness of breath; I25.10 Atherosclerotic heart disease of native coronary artery without angina pectoris; E87.6 Hypokalemia; N18.31 Chronic kidney disease, stage 3a; Z95.5 Presence of coronary angioplasty implant and graft; Z79.899 Other long term (current) drug therapy; Z79.82 Long term (current) use of aspirin; Z90.49 Acquired absence of other specified parts of digestive tract; Z90.89 Acquired absence of other organs; Z90.710 Acquired absence of both cervix and uterus

== ENCOUNTER → 2022-07-09 | Outpatient (CLI) | payer MEDICARE ==
[~2022-07-09] MED LIST changes: +BRILINTA60 MG PO; -BRILINTA90 M1 PO; +FISH OIL 1,2001 EACH PO; +NAMENDA10 MG PO
== END | disposition home or self-care (01) ==
LOC: CARD 01:44
PROVIDERS: ATTEND Internal Medicine Cardiovascular Disease
DX: I08.3 Combined rheumatic disorders of mitral, aortic and tricuspid valves (principal); I11.9 Hypertensive heart disease without heart failure; I25.10 Atherosclerotic heart disease of native coronary artery without angina pectoris; R93.1 Abnormal findings on diagnostic imaging of heart and coronary circulation

== ENCOUNTER → 2022-07-23 | Outpatient (CLI) | payer MEDICARE ==
[2022-07-23 15:50] LABS: BUN 7 mg/dl (9-23); CHLORIDE 98 mmol/L (98-107); POTASSIUM 3.5 mmol/L (3.4-5.1)
== END | disposition home or self-care (01) ==
LOC: LAB 01:35
PROVIDERS: ATTEND Internal Medicine Cardiovascular Disease
DX: I11.0 Hypertensive heart disease with heart failure (principal); I50.23 Acute on chronic systolic (congestive) heart failure